=== PATIENT | female | born 2000 | race Caucasian/White ===

== ENCOUNTER 2020-03-30 08:42 | Outpatient (REF) | payer MEDICAID, SELFPAY | END 2020-03-30 08:43 | disposition home or self-care (01) | LOC: HO.LAB 08:42 | PROVIDERS: Visit Provider Internal Medicine | DX: Z20.822 Contact with and (suspected) exposure to COVID-19 (principal) | CPT/HCPCS: 36415; C9803; U0003; U0005 ==

== ENCOUNTER 2020-05-28 22:07 | Emergency (ER) | payer MEDICAID, SELFPAY ==
--- NOTE | ~2020-05-28 | US_ITS ---
EXAMINATION: US VENOUS WITH DOPPLER UPPER EXTREMITY, RIGHT CLINICAL INFORMATION: Right arm edema and swelling COMPARISON: None TECHNIQUE: Ultrasound of the upper extremity is performed using compression sonography and color and pulse Doppler flow with assessment of augmentation of flow. There is also imaging and Doppler assessment of the jugular and subclavian veins. Spectral analysis with color-flow imaging is performed. FINDINGS: Respiratory variation, normal compression, and augmented flow are noted throughout the upper extremity including the axillary, brachial, cubital, and radial and ulnar veins. There is normal flow in the internal jugular and subclavian veins. There is no visible deep or superficial thrombophlebitis. If the patient's symptoms progress, a followup ultrasound in 5 -7 days might be of value to exclude proximal propagation from a nonvisualized distal arm vein. US/US venous duplex UE RT IMPRESSION: No DVT demonstrated in the right upper extremity
[2020-05-28 22:21] VITALS: BP 116/74; PULSE 66; RESP 18; TEMP 36.9; O2SAT 98; BMI 28.8
--- NOTE | 2020-05-28 23:03 | ED_ITS ---
HPI - General Adult General Chief complaint: General Medical Stated complaint: Hand swelling Time Seen by Provider: 05/28/20 22:36 Source: patient and family (Mother) Mode of arrival: ambulatory Limitations: no limitations History of Present Illness HPI narrative: Right forearm swelling and pain around right wrist area. The symptoms started 2 days ago around the right wrist with swelling and pain with movement with no trauma, symptoms are progressively worsening now with the pain and swelling is going up to right arm, patient just came back from [facility] had plastic surgery done (bilateral breast augmentation, and liposuction) patient is wearing bilateral upper extremities compression socks. Related Data Allergies Allergy/AdvReac Type Severity Reaction Status Date / Time No Known Allergies Allergy Unverified 11/04/19 16:51 Review of Systems Review of Systems: All other systems are reviewed and are negative Constitutional: Reports as per HPI and Reports no additional constitutional complaints Eyes: Reports as per HPI and Reports no additional eye complaints Reports system reviewed and no additional complaints, except as documented Cardiovascular: Reports as per HPI and Reports no additional cardiovascular complaints Respiratory: Reports as per HPI and Reports no additional respiratory complaints Gastrointestinal: Reports as per HPI and Reports no additional gastrointestinal complaints Genitourinary: Reports no additional female genitourinary complaints Musculoskeletal: Reports no additional musculoskeletal complaints Skin/Breast: Reports system reviewed and no additional complaints, except as docu Psychiatric: Reports no additional psychiatric complaints Endocrine: Reports no additional endocrine complaints Hematologic/Lymphatic: Reports no additional hematologic/lymphatic complaints Allergic/Immunologic: Reports no additional allergic/immunologic complaints Reports system reviewed and no additional complaints, except as documented and Reports Abnormal speech present [facility] Past Medical History Surgical History Gastric bypass status for obesity H/O breast augmentation Social History Social History Advance Directives: No Advance Directives Information Provided: No Physical Exam Vital Signs: Vital Signs: Last Vital Signs Temp 98.4 F 05/28/20 22:21 Pulse 66 05/28/20 22:21 Resp 18 05/28/20 22:21 BP 116/74 05/28/20 22:21 Pulse Ox 98 05/28/20 22:21 Body Mass Index 28.8 Vital signs have been reviewed as appeared to be correct. Blood pressure normal. Heart rate normal. Respiration rate normal. Temperature normal. Oxygen saturation normal. Appearance: Alert. Oriented X3. No acute distress. Head: Normal external exam. Normocephalic. Atraumatic. No Camacho signs noted. No raccoon eyes noted Eyes: PERRLA. EOMI. Conjunctiva and sclera normal. Eyelids normal. ENT: TM's Normal. Pharynx normal. Uvula midline. Moist mucous membranes. No trismus noted. No drooling noted. No muffled voice noted. Neck: Normal inspection. Neck supple. FROM. No adenopathy. Thyroid Normal. No meningeal signs. No neck mass noted. CVS: Normal heart rate and rhythm. Heart sound normal. No murmurs noted. Pulses normal throughout. Respiratory: No respiratory distress. Painless inspiration. Breath sounds normal. No wheezes/rales/rhonchi noted. Chest nontender. No accessory muscle usage noted or decreased air movement noted. Abdomen: Soft and nontender. Bowel sounds normal in all 4 quadrants. No distention noted. No organomegaly noted. No visible injury noted. Back: No CVA tenderness. Full range of motion noted. Skin: Skin warm and dry. Normal skin color. Normal skin turgor. No rashes/lesions/lacerations noted. Extremities: Right upper extremities exam: Patent right radial artery pulsation, good cap refill less than 2 seconds in the right hand, pain with percussion over median nerve with hyperextending right wrist. Neuro: Oriented X 3. No motor deficit. No sensory deficit. Reflexes normal. Course Course Course Narrative: Assessment and plan. 19-year-old female came in with swelling and pain in the right wrist/arm physical exam is more consistent with carpal tunnel syndrome, however because the patient had a recent surgical procedure and recent travel patient had upper extremities ultrasound to rule out DVT. Medical Decision Making Imaging Data Right upper extremities ultrasound: Radiologist's impression: No DVT. Discharge Plan Discharge Clinical Impression: Acute carpal tunnel syndrome Patient Disposition: Home, Self-Care Instructions: Paresthesia (ED) Referrals: Everardo Balderas MD [Physician] - 2 days
== END 2020-05-29 01:01 | disposition home or self-care (01) ==
PROVIDERS: Emergency Provider Emergency Medicine
DX: G56.01 Carpal tunnel syndrome, right upper limb (principal); M25.531 Pain in right wrist; Z98.890 Other specified postprocedural states
CPT/HCPCS: 93971; 99283; 99284

== ENCOUNTER 2022-10-08 09:39 | Outpatient (REF) | payer OTHER, SELFPAY ==
[2022-10-08 14:28] LABS: Estimated Average Glucose 103 mg/dL; Hemoglobin A1c % 5.2 % (<6.0)
[2022-10-08 15:07] LABS: Blood Urea Nitrogen 8 mg/dL (9-16); Estimated Glomerular Filt Rate > 60; Potassium 4.2 mmol/L (3.3-5.1)
[2022-10-08 15:13] LABS: TSH reflex Free T4 1.56 uIU/mL (0.32-4.0)
[2022-10-08 16:43] LABS: CT PCR NOT DETECTED (Not Detect.); NG PCR NOT DETECTED (Not Detect.)
[2022-10-09 10:46] LABS: BV Int Neg Control Negative (Negative); BV Int Pos Control Positive (Positive)
[2022-10-12 12:28] LABS: Testosterone, Total 37 ng/dL (2-45)
== END 2022-10-08 09:40 | disposition home or self-care (01) ==
LOC: HO.CHCLDS 09:39
PROVIDERS: Visit Provider Advanced Practice Midwife
DX: N89.8 Other specified noninflammatory disorders of vagina (principal)
CPT/HCPCS: 0353U; 36415; 82565; 83036; 84132; 84403; 84443; 84520; 87480; 87510; 87660

== ENCOUNTER 2022-10-10 08:37 | Outpatient (REF) | payer OTHER, SELFPAY ==
[2022-10-10 15:36] LABS: Alanine Aminotransferase 24 U/L (0-31); Albumin Level 4.1 g/dL (3.5-5.0); Alkaline Phosphatase 85 U/L (39-117); Anion Gap 9 (12-20); Aspartate Amino Transferase 19 U/L (5-31); Bilirubin Total 0.7 mg/dL (0.0-1.0); Blood Urea Nitrogen 9 mg/dL (9-16); Calcium 9.3 mg/dL (8.4-10.2); Carbon Dioxide 24 mmol/L (22-29); Chloride 107 mmol/L (96-108); Estimated Glomerular Filt Rate > 60; Glucose Fasting 58 mg/dL (60-99); Potassium 4.2 mmol/L (3.3-5.1); Sodium 136 mmol/L (135-145); Total Protein 7.5 g/dL (6.5-8.0)
== END 2022-10-10 08:38 | disposition home or self-care (01) ==
LOC: CF 08:37
PROVIDERS: Visit Provider Internal Medicine
DX: R79.89 Other specified abnormal findings of blood chemistry (principal)
CPT/HCPCS: 36415; 80053

== ENCOUNTER 2023-05-22 10:49 | Emergency (ER) | payer OTHER, SELFPAY ==
[2023-05-22 10:51] VITALS: BP 117/70; PULSE 100; RESP 16; TEMP 36.4; O2SAT 100; BMI 33.5
--- NOTE | 2023-05-22 11:35 | ED.SKABFB ---
HPI - Skin/Abscess/Foreign Bdy General Chief complaint: Skin/Abscess/Foreign Body Stated complaint: cyst on back Time Seen by Provider: 05/22/23 10:55 Source: patient Mode of arrival: ambulatory Limitations: no limitations History of Present Illness HPI narrative: Nydia is a 22 year old female presenting today for evaluation of a mass on her back for a 1 month that has been growing acutely the past week. Reports that her noticed a small bump 1cm in her middle back, between clavicles about a month ago. Nonpainful at this time. This Friday, she noticed that the mass was painful with upper extremity movement. Mass has grown to 6cm. Reports very painful and tender to touch. Denies cold symptoms, reports one isolated fever a few days ago/ MD complaint: other (cyst) Onset (ago): month(s) (first noticed 1 month ago with acute growing since Friday) Location: back Severity: severe Severity scale (1-10): 9 Quality: sharp Pain Consistency: constant Relieving factors: none Exacerbating factors: movement Context: none Associated symptoms: denies other symptoms Treatments prior to arrival: none Related Data Allergies Allergy/AdvReac Type Severity Reaction Status Date / Time No Known Allergies Allergy Verified 05/22/23 10:52 Review of Systems Review of Systems: Yes all other systems are reviewed and are negative PMFSH Past Medical History Surgical History Gastric bypass status for obesity H/O breast augmentation Social History Social History Advance Directives: No Advance Directives Information Provided: No Physical Exam Vital Signs: Vital Signs: Last Vital Signs Temp 98.0 F 05/22/23 12:42 Pulse 79 05/22/23 12:42 Resp 18 05/22/23 12:42 BP 106/72 05/22/23 12:42 Pulse Ox 99 05/22/23 12:42 O2 Del Method Room Air 05/22/23 12:42 BMI result Body Mass Index 33.5 Appearance: Alert. Oriented X3. No acute distress. Head: normocephalic, atraumatic. ENT: Pharynx normal. No tonsillar swelling or exudate. Neck: Normal inspection. Neck supple. CVS: Normal heart rate and rhythm. Pulses normal. Respiratory: No respiratory distress. Breath sounds normal. Abdomen: Soft and nontender. Skin: Skin warm and dry. Normal skin color. Normal skin turgor. No rashes. 6cm mild deep mass, located midback between L&R scapula. Mild erythema, mild fluctance. Tender to palpation Extremities: No lower extremity edema. No joint swelling. Neuro/psych: Oriented X 3. Medical Decision Making Medical Decision Making MDM Narrative: Nydia is a 22 year old female who presents today for evaluation of a cyst on her upper middle back for 1 month which has been acutely growing since Friday. Initial started as 1cm and nonpainful and has grown to 6cm and tender to touch since Friday. Mass is deep and has overlying erythema and mildly fluctuating. Exam is otherwise unremarkable. Patient asked for I&D as it is painful. Performed I&D and expelled cellular debris and blood. No purulence note and low clinical suspicion for infection at this time. Will hold off on antibiotics. Dressed with absorbent pad and stable for discharge home. Referred to Dermatology for follow up with strict return to ER precautions. Differential Diagnosis Differential Diagnoses: The differential diagnosis associated with the presentation includes abscess, cyst, lipoma, tumor, ingrown hair, pimple Tests considered The following testing was considered but not selected: considered culture of fluid, does not appear infected Prescription Management I considered prescription management with: Pain Medication and Antibiotic Procedures Abscess I/D Site: back Local Anesthetic: lidocaine 1% Amount of anesthesia used (mL): 1 Technique: incised with blade (11 blade) Sent for culture/gram staining?: No Irrigation: Yes Packing used?: none Complications: other Critical Care Time Critical Care Time Critical Care Time: No Discharge Plan Discharge Clinical Impression: Epidermoid cyst of skin of back Patient Disposition: Home, Self-Care Instructions: Cyst (ED) Additional Instructions: Your cyst was drained in the ER today No signs of infection so no need for antibiotics Recommend following up with Dermatology for further evaluation and treatment [facility] in [address] [phone] If you develop new or worsening symptoms call 911 or come back to the ER for further evaluation. Referrals: Rory Gregorio MD [Primary Care Provider] - Stand Alone Forms: Work/School Release Interventions: ED Discharge Assessment Last Done: 05/22/23 12:42 Discharge Date/Time: 05/22/23 12:43 Print Language: Filipino
[2023-05-22 12:42] VITALS: BP 106/72; PULSE 79; RESP 18; TEMP 36.7; O2SAT 99
== END 2023-05-22 12:43 | disposition home or self-care (01) ==
PROVIDERS: Emergency Provider Emergency Medicine; PCP Internal Medicine
DX: L02.212 Cutaneous abscess of back [any part, except buttock and flank] (principal)
CPT/HCPCS: 10060; 99282; 99284

== ENCOUNTER 2023-06-26 14:56 | Outpatient (REF) | payer OTHER, SELFPAY ==
[2023-06-26 16:48] LABS: HCG Quantitative 9215 mIU/mL
== END 2023-06-26 14:57 | disposition home or self-care (01) ==
LOC: HO.HHCL 14:56
PROVIDERS: Visit Provider Internal Medicine
DX: Z31.9 Encounter for procreative management, unspecified (principal)
CPT/HCPCS: 36415; 84702

== ENCOUNTER 2024-06-01 11:46 | Outpatient (REF) | payer MEDICAID, SELFPAY ==
--- OUTSIDE RECORDS SUMMARY | 2024-06-01 14:35 | XMS_ITS | Encounter Summary ---
Author Organization [employer] Address [address] [facility] 7 [place] [address] Care Team Providers Care Bessemer Converter Blower Name Role Phone Rory Gregorio MD Primary Care Prov ider Encounter Details Date Type Department Care Team (Late st Contact Info) Description 10/10/2022 Telephone [facility] [address] [place] [address] Rory Gregorio MD [address] [place], [place] [phone] Social History Tobacco Use Types Packs/Day Years Used Date Smoking Tobacco: Never Smokeless Tobacco: Never Alcohol Use Standard Drinks/Week Comments Never 0 (1 standard drink = 0.6 oz pur e alcohol) Comments No Sex and Gender Information Value Date Recorded Sex Assigned at Female 12/17/2021 10:35 AM EDT Legal Sex Female 10:35 AM EDT Gender Identity Female 12/17/2021 10:35 AM EDT Sexual Orientation Straight 12/17/2021 10 :35 AM EDT documented as of this encounter Miscellaneous Notes * Telephone Encounter - Isabelle Treadwell RN - 10/10/2022 4:02 PM EDT Please see message below. Message also sent to PCP via secure chat. * Telephone Encounter - Violet Morrison LPN - 10/10/2022 3:44 PM EDT Critical Line call received at this time. Noel with [facility] chem lab reports patient BS 58 this morning at 839am. Team Nurses updated with result. Triage Nurse did wellness check with patient and patient without concerns. Was fasting overnight and has had breakfast and lunch and feels well. Please update PCP as needed. documented in this encounter Plan of Treatment Not on file documented as of this encounter Visit Diagnoses Not on filedocumented in this encounter Care Teams Bessemer Converter Blower Relationship Specialty Start Date End Date Rory Gregorio MD [address] [place] [id number] PCP - General Internal Medicine 07/13/19 Rayna Mauro Regional Education Coordinator 04/09/24 documented as of this encounter
--- OUTSIDE RECORDS SUMMARY | 2024-06-01 14:35 | XMS_ITS | Encounter Summary ---
Author Organization [employer] Address [address] [place] [address] Care Team Providers Care Automatic Outsole Cutter Name Role Phone Rory Gregorio MD Primary Care Prov ider Encounter Details Date Type Department Care Team (Latest Contact Info) Description 05/31/2024 Travel Social History Tobacco Use Types Packs/Day Years Used Date Smoking Tobacco: Never Smokeless Tobacco: Never Alcohol Use Standard Drinks/Week Comments Never 0 (1 standard drink = 0.6 oz pur e alcohol) Housing Stability Answer Date Recorded What is your housing situation today? I have ayanna faheem 02/27/[address] you li ve. Do you have problems with any of the following? None of the above 02/27/2024 Food Insecurity Answer Date Recorded Within the past 12 months, y ou worried that your food would run out before you got money to buy more: Never True 02/27/2024 Within the past 12 months,th e food you bought just didn't last and you didn't have enough money to get more: Never True 11/2024 Transportation Answer Date Recorded In the past 12 months, has l ack of transportation kept you from medical appts, meetings, work or from getting things needed for daily living? No 02/27/2024 Utilities Answer Date Recorded In the past 12 months, has t he electric, gas, oil or water company threatened to shut off services in your home? No 02/27/2024 Internet Access Answer Date Recorded Internet Access Q1 Yes 02/27/2024 Internet Access Q2 Not on file 02/27/2024 Comments No Sex and Gender Information Value Date Recorded Sex Assigned at Female 12/17/2021 10:35 AM EDT Legal Sex Female 10:35 AM EDT Gender Identity Female 12/17/2021 10:35 AM EDT Sexual Orientation Straight 12/17/2021 10 :35 AM EDT documented as of this encounter Plan of Treatment Not on file documented as of this encounter Visit Diagnoses Not on filedocumented in this encounter Care Teams Automatic Outsole Cutter Relationship Specialty Start Date End Date Rory Gregorio MD [address] [place] [phone] PCP - General Internal Medicine 07/13/19 Rayna Mauro Dress Marker 04/09/24 documented as of this encounter
--- OUTSIDE RECORDS SUMMARY | 2024-06-01 14:35 | XMS_ITS | Clinical Summary ---
Author Organization [employer] Address [address] [place] [address] Care Team Providers Care Apparatus Lineman Name Role Phone Rory Gregorio MD Primary Care Prov ider Allergies No known active allergies Medications Vit-Fe Fumarate-FA ( Plus) 27-1 MG tablet One tablet by mouth daily 30 tablet 11 01/30/2023 Active Encounters Date Type Department Care Team Description 05/31/2024 2:20 PM EDT Office Visit [facility] [address] [place] [address] Portillo Reardon MD Rectal bleed (Primary Dx) 05/31/2024 Travel 05/31/2024 Telephone [facility] [address] [place] [phone] Rory Gregorio MD Nurse Triage 05/24/[address] [phone] Rory Gregorio MD Care Management (C3 follow up call) 05/20/2024 Patient Outreach [facility] [address] [place] [phone] Rory Gregorio MD Care Coordination (C3/JENA Guerrero- Follow up call) 05/07/2024 Patient Outreach [facility] [address] [place] [phone] Rory Gregorio MD Care Coordination (C3/ JENA Guerrero-Follow up call) 04/30/2024 Population Health Risk [facility] ([facility] Department [address] [place] [phone] Provider, Population Health Generic 04/23/2024 Patient Outreach [facility] [address] [place] [address] Rory Gregorio MD Care Coordination ([facility]/JENA Guerrero- Follow up) 04/23/2024 Telephone [facility] [address] [place] [phone] Rory Gregorio MD Care Management (C3 follow up call) 04/09/2024 Telephone [facility] [address] [place] [phone] Rory Gregorio MD Care Management (C3 initial assessment/enrollme nt) 04/08/2024 Patient Outreach [facility] [address] [place], [place] [phone] Rory Gregorio MD Care Coordination ([facility]/JENA Guerrero- LVM-Appt Reminder for CM Initial Assessment) 03/22/2024 Patient Outreach [facility] [address] [place] [address] Rory Gregorio MD Care Coordination ([facility]/JENA Guerrero- Rescheduled missed initial assessment ) 03/11/2024 Patient Outreach [facility] [address] [place] [address] Rory Gregorio MD Care Coordination ([facility]/JENA Guerrero-Reschedule CM Program/ HR Maternity IA) 03/10/2024 Patient Outreach [facility] [address] [place] [address] Rory Gregorio MD Care Coordination ([facility]/JENA Guerrero- [place] Appt Reminder) from Last 3 Months Social History Tobacco Use Types Packs/Day Years Used Date Smoking Tobacco: Never Smokeless Tobacco: Never Tobacco Cessation:Counseling Given: Not Answered Alcohol Use Standard Drinks/Week Comments Never 0 (1 standard drink = 0.6 oz pur e alcohol) Housing Stability Answer Date Recorded What is your housing situation today? I have ayanna mayen 02/27/[address] you li [...] Orientation Straight 12/17/2021 10 :35 AM EDT Last Filed Vital Signs Vital Sign Reading Time Taken Comments Blood Pressure 102/65 05/31/2024 2:22 PM EDT Pulse 97 05/31/2024 2:22 PM EDT Temperature 36.6 ??C (97.9 ??F) 05/31/2024 2:22 PM ED T Respiratory Rate 20 05/31/2024 2:22 PM EDT Oxygen Saturation 97% 05/31/2024 2:22 PM EDT Inhaled Oxygen Concentration - - Weight 108 kg (237 lb) 05/31/2024 2:22 PM EDT Height 176.5 cm (5' 9.5 ) 05/31/2024 2:22 PM EDT Body Mass Index 34.5 05/31/2024 2:22 PM EDT Plan of Treatment Health Maintenance Due Date Last Done Comments Depression Screening 1999 Alcohol/Substance Use Screening 2011 Family Planning (PISQ) 11/21/2014 HPV Vaccines (2 - 3-dose series) 03/09/2015 02/09/2015, 02/09/2015 COVID-19 Vaccine (3 - season) 2023 11/16/2020, 10/26/2020 Pap Smear 10/09/2024 10/09/2021, 10/09/2021 SDOH Screening 02/26/2025 02/27/2024 Tobacco Screening 03/01/2025 03/01/2024 DTaP/Tdap/Td Vaccines (8 - Td or Tdap) 12/14/2033 12/15/2023, 02/09/2015, 03/14/2006, Additional history exists Zoster Vaccines (1 of 2) 11/21/2049 RSV Patients and Patients Aged 60 years or older (1 - 1-dose 75+ series) 11/21/2074 Hepatitis B Vaccines Completed 05/22/2000, 05/22/2000, 01/08/2000, Additional history exists HIB Vaccines Completed 01/22/2001, 06/2000, 03/24/2000, Additional history exists Pneumococcal Vaccine: Pediatrics (0 to 5 Years) and At-Risk Patients (6 to 49) Years) Aged Out 01/22/2001, 05/22/2000, 03/24/2000, Additional history exists No longer eligible based on patient's age to complete this topic IPV Vaccines Completed 03/14/2006, 05/18, 03/24/2000, Additional history exists Meningococcal Vaccine Aged Out 02/09/2015, 015 No longer eligible based on patient's age to complete this topic HIV Screening Completed 03/20/2020 Hepatitis C Screening Completed 03/20/2020 Influenza Vaccine Completed 12/15/2023, , 02/09/2015 Hepatitis A Vaccines Aged Out No long er eligible based on patient's age to complete this topic RSV under 20 months Aged Out No longe r eligible based on patient's age to complete this topic Rotavirus Vaccines Aged Out No longer eligible based on patient's age to complete this topic Procedures Procedure Name Priority Date/Time Associated Diagnosis Comments [facility] PAP Routine 10/09/2021 1:19 PM EDT ZZZ HISTORICAL HEPATITIS C AB W/REFL TO HCV RNA, QN, PCR Routine 03/20/2020 8:19 AM EST HIV 1/2 ANTIGEN/ANTIBODY, FOURTH GENERATION W/RFL Routine 03/20/2020 8:19 AM EST from Last 3 Months or Most Recently Relevant to Health Maintenance Results * THINPREP TIS PAP (10/09/2021 1:19 PM EDT) Clinical Information: None given [facility] COMMENT SEE COMMENT [facility] Comment: EXPLANATORY NOTE: ? The Pap is a screening test for cervical cancer. It is ?? not a diagnostic test and is subject to false negative ?? and false positive results. It is most reliable when a ?? satisfactory sample, regularly obtained, is submitted ?? with relevant clinical findings and history, and when ?? the Pap result is evaluated along with historic and ?? current clinical information. ?? COMMENT: This Pap test has been evaluated with computer assisted technology. [facility] Hack Saw Operator : SEE COMMENT [facility] Comment: YP, CT(ASCP) CT screening location: [address] ??[id number] Interpretation/R esult: Negative for intraepithelial lesion or malignancy. [facility] LMP: 09/25/21 [facility] Prev. BX: NONE GIVEN [facility] Prev. PAP: NONE GIVEN [facility] SOURCE: None given [facility] Statement Of Adequacy: SEE COMMENT [facility] Comment: Satisfactory for evaluation. Endocervical/transformation zone component absent. 10/09/2021 1:19 PM EDT us Danette Donahue CNM LAB PATHOLOGY ORDERABLES Final Result [facility] [address] * HEPATITIS C AB W/REFL TO HCV RNA, QN, PCR (03/20/2020 8:19 AM EST) HEPATITIS C ANTIBODY NON-REACT [place] NON-REACT [place] [facility] INDEX 0.01 <1.00 [facility] Comment: ?? HCV antibody was non-reactive. There is no laboratory ?? evidence of HCV infection. ?? In most cases, no further action is required. However, if recent HCV exposure is suspected, a test for HCV RNA (test code 75789) is suggested. ?? For additional information please refer to http://[employer]/faq/FEP00e6 (This link is being provided for informational/ educational purposes only.) ?? 03/20/2020 8:19 AM EST us Rory Pierce MD HISTORICAL/NON ORD ERABLE LABS Final Result [facility] [address] [place] [address], * HIV 1/2 ANTIGEN/ANTIBODY,FOURTH GENERATION W/RFL (03/20/2020 8:19 AM EST) HIV-1/2 ANTIGEN AND ANTIBODIES, 4TH GENERATION W/ REFLEX NON-REACT [place]IGHT[place] NON-REACT LE[place]ON [facility] Comment: HIV-1 antigen and HIV-1/HIV-2 antibodies were not detected. There is no laboratory evidence of HIV infection. ?? PLEASE NOTE: This information has been disclosed to you from records whose confidentiality may be protected by state law. ??If your state requires such protection, then the state law prohibits you from making any further disclosure of the information without the specific written consent of the person to whom it pertains, or as otherwise permitted by law. A general authorization for the release of medical or other information is NOT sufficient for this purpose. ? For additional information please refer to http://[email or web address]/faq/OIW119 (This link is being provided for informational/ educational purposes only.) ? The performance of this assay has not been clinically validated in patients less than 2 years old. ?? 03/20/2020 8:19 AM EST us Rory Pierce MD LAB BLOOD ORDERABL ES Final Result [facility] [address] from Last 3 Months or Most Recently Relevant to Health Maintenance Insurance [facility] C3 Care Teams Apparatus Lineman Relationship Specialty Start Date End Date Rory Gregorio MD [address] [place] [id number] PCP - General Internal Medicine 07/13/19 Rayna Mauro Digital X Ray Service Engineer 04/09/24
--- OUTSIDE RECORDS SUMMARY | 2024-06-01 14:35 | XMS_ITS | Encounter Summary ---
Author Organization [employer] Address [address] [place] [id number] Care Team Providers Care Conduit Cleaner Name Role Phone Rory Gregorio MD Primary Care Prov ider Reason for Referral * Consultation (Routine) - Pending Review Specialty Diagnoses / Procedures Referred By Ricci atkins Referred To Contact Gastroenterology Diagnoses Rectal bleed Portillo Reardon MD [address] [place] [address] Phone: tel: fax: Referral ID Status Reason Start Date Expiration Date Visits Requested Visits Authorized [id number] Pending Review Specialty Services Required 05/31/2024 05/31/2025 1 1 Reason for Visit * Reason Comments Rectal Bleeding Encounter Details Date Type Department Care Team ([facility] Contact Info) Description 05/31/2024 2:20 PM EDT Office Visit [facility] MED & PEDS [address] [place] [address] Portillo Reardon MD [address] [place] [address] Rectal bleed (Primary Dx) Social History Tobacco Use Types Packs/Day Years [...] AM EDT documented as of this encounter Last Filed Vital Signs Vital Sign Reading [...] Mass Index 34.5 05/31/2024 2:22 PM EDT documented in this encounter Progress Notes * Portillo Reardon MD - 05/31/2024 2:20 PM EDT Subjective Patient ID: Nydia Merida is a 23 y.o. female who presents for Rectal Bleeding. Rectal Bleeding This is a new problem. The current episode started in the past 7 days. The problem occurs daily. The problem has been unchanged. Pertinent negatives include no abdominal pain, anorexia, arthralgias, change in bowel habit, chest pain, chills, congestion, coughing, diaphoresis, fatigue, fever, headaches, joint swelling, myalgias, nausea, neck pain, numbness, rash, sore throat, swollen glands, urinary symptoms, vertigo, visual change, vomiting or weakness. Note from triage reviewed: pt states having 3 episodes a few days ago of blood in stool. pt states small streaks in her stool and on the paper after wiping. pt denies previous history, a lot of blood in stool, red water, history of hemorrhoids,constipation, diarrhea, abdominal or rectal pain, or other associated symptoms. First episode of rectal bleed in the last 3 days. Has blood both in the bowl and when wipes herself. History of delivery 3 months ago. No history of hemorrhoids. Review of Systems Constitutional: Negative for chills, diaphoresis, fatigue and fever. HENT: Negative for congestion and sore throat. Respiratory: Negative for cough. Cardiovascular: Negative for chest pain. Gastrointestinal: Positive for hematochezia. Negative for abdominal pain, anorexia, change in bowelhabit, nausea and vomiting. Musculoskeletal: Negative for arthralgias, joint swelling, myalgias and neck pain. Skin: Negative for rash. Neurological: Negative for vertigo, weakness, numbness and headaches. Objective BP 102/65 (BP Location: Left arm, Patient Position: Sitting, BP Cuff Size: Adult long) Pulse 97 Temp 97.9 ??F (36.6 ??C) (Oral) Resp 20 Ht 5' 9.5 (1.765 m) Wt 237 lb (108 kg) SpO2 97% BMI 34.50 kg/m?? Physical Exam Constitutional: General: She is not in acute distress. Appearance: Normal appearance. She is not ill-appearing, toxic-appearing or diaphoretic. Cardiovascular: Rate and Rhythm: Normal rate and regular rhythm. Heart sounds: No murmur heard. No friction rub. Genitourinary: Comments: No redness or swelling of the perianal area No external hemorrhoids Skin: General: Skin is warm. Neurological: General: No focal deficit present. Mental Status: She is alert. Assessment/Plan Diagnoses and all orders for this visit: Rectal bleed - Referral to Gastroenterology; Future - CBC auto differential; Future High-fiber diet, appropriate hydration recommended GI evaluation to assess if patient is a candidate for a colonoscopy documented in this encounter Plan of Treatment Scheduled Orders Name Type Priority Associated Diagnoses Orde r Schedule CBC auto differential Lab Routine Rectal bleed Expected: 05/31/2024 (Approximate), Expires: 05/31/2025 Scheduled Referrals Name Type Priority Associated Diagnoses Order Schedule Referral to Gastroenterology Outpatient Referral Routine Rectal bleed Expected: 05/31/2024 (Approximate), Expires: 05/31/2025 documented as of this encounter Visit Diagnoses Diagnosis Rectal bleed- Primary Hemorrhage of rectum and anus documented in this encounter Care Teams Conduit Cleaner Relationship Specialty Start Date End Date Rory Gregorio MD [address] [place] [id number] PCP - General Internal Medicine 07/13/19 Rayna Mauro It Admin 04/09/24 documented as of this encounter
--- OUTSIDE RECORDS SUMMARY | 2024-06-01 14:35 | XMS_ITS | Encounter Summary ---
Author Organization [employer] Address [address] [place] [address] [place] [address] Care Team Providers Care Human Services Program Specialist Name Role Phone Rory Gregorio MD Primary Care Prov ider Reason for Visit * Reason Onset Date Comments Referral 07/09/2023 Encounter Details Date Type Department Care Team ([facility] st Contact Info) Description 07/09/2023 Telephone [facility] CH[facility] MED & PEDS [address] [place], [place] [phone] Rory Gregorio MD [address] [place] [address] Referral Social History Tobacco Use Types Packs/Day Years [...] encounter Miscellaneous Notes * Telephone Encounter - Shreya Gomez - 07/11/2023 11:56 AM EDT Referral re-faxed to office. * Telephone Encounter - Rocio Treadwell - 07/09/2023 10:20 AM EDT Tc from pt requesting Ob/Gy referral to be re faxed to [phone]. States office did no receive referral. documented in this encounter Plan of Treatment Not on file documented as of this encounter Visit Diagnoses Not on filedocumented in this encounter Care Teams Human Services Program Specialist Relationship Specialty Start Date End Date Rory Gregorio MD [address] [place] [id number] PCP - General Internal Medicine 07/13/19 Rayna Mauro Biostatistics Teacher 04/09/24 documented as of this encounter
--- OUTSIDE RECORDS SUMMARY | 2024-06-01 14:35 | XMS_ITS | Encounter Summary ---
Author Organization [employer] Address [address] [place] [address] 7 [place] [address] Care Team Providers Care Actuarial Science Teacher Name Role Phone Rory Gregorio MD Primary Care Prov ider Encounter Details Date Type Department Care Team ([facility] st Contact Info) Description 10/09/2022 Orders Only [facility] CH[facility] MED & PEDS [address] [place], [place] [phone] Rory Gregorio MD [address] [place] [address] Low BUN (Primary Dx) Social History Tobacco Use Types [...] as of this encounter Plan of Treatment Scheduled Orders Name Type Priority Associated Diagnoses Orde r Schedule Comprehensive Metabolic Panel Lab Routine Low BUN Expected: 10/09/2022 (Approximate), Expires: 10/10/2023 documented as of this encounter Visit Diagnoses Diagnosis Low BUN- Primary documented in this encounter Care Teams Actuarial Science Teacher Relationship Specialty Start Date End Date Rory Gregorio MD [address] [place], [place] [phone] PCP - General Internal Medicine 07/13/19 Rayna Mauro Solar Designer 04/09/24 documented as of this encounter
--- OUTSIDE RECORDS SUMMARY | 2024-06-01 14:35 | XMS_ITS | Encounter Summary ---
Author Organization [employer] Address [address] [facility] [address] [place] [address] Care Team Providers Care Bowling Alley Mechanic Name Role Phone Rory Gregorio MD Primary Care Prov ider Reason for Visit * Reason Onset Date Comments Nurse Triage 05/31/2024 Encounter Details Date Type Department Care Team ([facility] st Contact Info) Description 05/31/2024 Telephone [facility] MEDICINE [address] [place] [address] Rory Gregorio MD [address] [place], [place] [phone] Nurse Triage Social History Tobacco Use Types Packs/Day Years [...] t he electric, gas, oil or water [employer] threatened to shut off services in your [...] encounter Miscellaneous Notes * Telephone Encounter - Jamila Roger RN - 05/31/2024 9:43 AM EDT called pt to triage, spoke to pt. pt states having 3 episodes a few days ago of blood in stool. pt states small streaks in her stool and on the paper after wiping. pt denies previous history, a lot of blood in stool, red water, history of hemorrhoids,constipation, diarrhea, abdominal or rectal pain, or other associated symptoms. given appt today with [facility] at 2:20 for exam. advised home care: rest, fluids, bland diet for now, monitor for fevers, and call back if worsening or new concerns. pt understands and agrees with plan. previous health plan no longer active, pt states now has MH. checked the MH and is currently active. Protocol Used: Rectal Bleeding (Adult) Protocol-Based Disposition: See in Office or Video Visit within 3 Days Video visit offer not recorded Positive Triage Question: * Mild rectal bleeding (more than just a few drops or streaks) * All higher-acuity triage questions were negative Care Advice Discussed: * Reassurance and Education - Mild Rectal Bleeding * Warm Saline Sitz Baths - For Rectal Symptoms * Warm Saline Sitz Baths - How to Make a Sitz Bath * To Soften Stools and Treat Constipation * High Fiber Diet * Hydrocortisone Ointment for Rectal Itching * Reasons To Call Back - Bleeding increases in amount - Bleeding occurs 3 or more times after using Care Advice - You become worse * Telephone Encounter - Latonia Aldana - 05/31/2024 8:24 AM EDT Symptom: Stools - Blood Mixed In Outcome: Schedule an urgent appointment (within 4 hours) or talk to a nurse or provider soon Reason: Caller denied all higher acuity questions The caller accepted this outcome. [phone] documented in this encounter Plan of Treatment Not on file documented as of this encounter Visit Diagnoses Not on filedocumented in this encounter Care Teams Bowling Alley Mechanic Relationship Specialty Start Date End Date HustonRory Torres MD [address] [place] [id number] PCP - General Internal Medicine 07/13/19 Rayna Mauro Surgery Aide 04/09/24 documented as of this encounter
[2024-06-01 14:44] LABS: MANUAL DIFF FLAG NO
[2024-06-01 14:50] LABS: Basophils Percent Auto 0.6 % (0-2); Eosinophils Absolute Auto 0.2 X10*3/uL (0.0-0.4); Eosinophils Percent Auto 2.9 % (0-4); Hematocrit 37.8 % (37.0-47.0); Hemoglobin 12.3 g/dl (12.0-16.0); Imm Gran Abs Auto 0.01 X10*3/uL (0.00-0.03); Imm Gran Pct Auto 0.1 % (0.0-0.4); Lymphocytes Absolute Auto 2.6 X10*3/uL (1.2-4.9); Lymphocytes Percent Auto 36.4 % (20-40); Mean Corpuscular HGB Conc 32.5 g/dl (31.0-35.0); Mean Corpuscular Hemoglobin 28.7 pg (27.0-33.0); Mean Corpuscular Volume 88.1 fL (80.0-98.0); Mean Platelet Volume 12.3 fL (9.4-12.3); Monocytes Absolute Auto 0.5 X10*3/uL (0.1-1.2); Monocytes Percent Auto 7.4 % (2-11); Neutrophils Absolute Auto 3.8 x10*3/uL (2.0-8.3); Neutrophils Percent Auto 52.6 % (45-73); Platelet Count 110 X10*3/uL (160-400); Red Blood Count 4.29 X10*6/uL (4.20-5.50); Red Cell Distribution Width 14.5 % (11.0-16.0); White Blood Count 7.2 X10*3/uL (4.8-10.8)
== END 2024-06-01 11:47 | disposition home or self-care (01) ==
LOC: HO.CHCLDS 11:46
PROVIDERS: Visit Provider Internal Medicine
DX: K62.5 Hemorrhage of anus and rectum (principal)
CPT/HCPCS: 36415; 85025

== ENCOUNTER 2024-07-17 14:13 | Outpatient (REF) | payer MEDICAID, SELFPAY | END 2024-07-17 14:14 | disposition home or self-care (01) | LOC: HO.LNP 14:13 | PROVIDERS: Visit Provider Family Medicine | DX: A60.1 Herpesviral infection of perianal skin and rectum (principal) | CPT/HCPCS: 87255 ==

== ENCOUNTER 2024-09-29 10:59 | Outpatient (AMB) | payer MEDICAID, SELFPAY ==
--- NOTE | 2024-09-29 11:11 | A.OFFVIS_ITS ---
Vital Signs 09/29/24 11:15 Height 5 ft 9.5 in Weight 235 lb 14.314 oz BMI 34.3 BP 103/55 L Blood Pressure Location Lt brachial Position Sitting Pulse 88 Intake Visit Reasons: Rectal bleeding Intake Note: Nydia presents in the office as a new patient for rectal bleeding. CC: She states that she is no longer having the rectal bleeding. She states that it was for 4-5 days and it went away on its own. Campaign Fundraiser Required: No Allergies No Known Allergies Allergy (Verified 09/29/24 11:16) HPI Comments Details: 23 y.o F with PMH of who is here for rectal bleeding that has since resolved. Pt reports had a 4 day episode in May 2024 of seeing streaks of fresh BRB on TP after wiping. During that time she was constipated and was straining. No rectal pressure or pain at that time or at present. No abd pain. Pt is post , baby born 02/2025. No anal trauma, or intercourse. [facility] Surgical History H/O breast augmentation Gastric bypass status for obesity Review of Systems Const All systems reviewed & are unremarkable except as noted in HPI and below Physical Exam Exam Exam: No apparent distress Nonicteric Abdomen soft, nondistended rectal: (Zohra bueno present as digital imager) no external hemorrhoids, anal tag, small internal hemorrhoids, no blood on gloved finger Alert and oriented x3, normal gait Vital Signs: Last Vital Signs Pulse 88 09/29/24 11:15 BP 103/55 L 09/29/24 11:15 BMI result Body Mass Index 34.3 Assessment & Plan Assessment & Plan (1) Bright red rectal bleeding: Code(s): K62.5 - Hemorrhage of anus and rectum Category: Medical Plan Self-limiting rectal bleeding a few months ago. This occurred in the context of constipation and straining. Likely had hemorrhoidal bleeding. No red flags at present to warrant urgent endoscopic evaluation. Patient advised to avoid straining and constipation. Take adequate hydration, and fiber supplementation. Can take MiraLax as needed for constipation. Encouraged to call back the office if this recurs. Medications: New psyllium seed (sugar) (Metamucil (sugar) oral powder) 1 tsp PO DAILY 1,254 grams 0RF Coding Level of Care Code New Pt Level 3 (06621) Diagnoses Bright red rectal bleeding K62.5
[2024-09-29 11:15] VITALS: BP 103/55; PULSE 88; BMI 34.3
--- OUTSIDE RECORDS SUMMARY | 2024-09-29 11:55 | XMS_ITS | Encounter Summary ---
Author Organization [employer] Address [address] [place] [address] [address] [place] [address] Care Team Providers Care Speech And Hearing Director Name Role Phone Rory Gregorio MD Primary Care Prov ider Reason for Visit * Reason Onset Date Comments Referral 07/09/2023 Encounter Details Date Type Department Care Team ([facility] Contact Info) Description 07/09/2023 Telephone [facility] CHC MED & PEDS [address] [place], [place] [phone] Rory Gregorio MD [address] [place] [address] Referral Social History Tobacco Use Types Packs/Day [...] Ob/Gy referral to be re faxed to [phone]. States office did no receive referral. documented in this encounter Plan of Treatment Upcoming Encounters Date Type Department Care Team (Late st Contact Info) Description 10/07/2024 1:15 PM EDT Procedure Visit [facility] MEDICINE [address] [place], [place] [phone] Danette Donahue CNM [address] [place], [place] [phone] documented as of this encounter Visit Diagnoses Not on filedocumented in this encounter Care Teams Speech And Hearing Director Relationship Specialty Start Date End Date Rory Gregorio MD [address] [place] [phone] PCP - General Internal Medicine 07/13/19 Rayna Mauro Fax Machine Operator 04/09/24 documented as of this encounter
== END 2024-09-29 13:45 | disposition home or self-care (01) ==
LOC: HO.HGI 10:59
PROVIDERS: PCP Internal Medicine; Visit Provider Internal Medicine
DX: K62.5 Hemorrhage of anus and rectum (principal)
CPT/HCPCS: 99203

== ENCOUNTER → 2024-09-29 10:59 | Outpatient (BNVA) | payer MEDICAID, SELFPAY | PROVIDERS: PCP Internal Medicine; Visit Provider Internal Medicine | DX: K62.5 Hemorrhage of anus and rectum (principal) | CPT/HCPCS: 99202 ==

== ENCOUNTER 2024-10-07 19:02 | Outpatient (REF) | payer MEDICAID, SELFPAY ==
[2024-10-11 19:58] LABS: C. trachomatis RNA TMA NOT DETECTED (NOT DETECTED); N. gonorrhoeae RNA TMA NOT DETECTED (NOT DETECTED); Trichomonas (NAAT) NOT DETECTED (NOT DETECTED)
== END 2024-10-07 19:03 | disposition home or self-care (01) ==
LOC: HO.HHCLNP 19:02
PROVIDERS: Visit Provider Advanced Practice Midwife
DX: Z12.4 Encounter for screening for malignant neoplasm of cervix (principal); Z11.3 Encounter for screening for infections with a predominantly sexual mode of transmission
CPT/HCPCS: 87491; 87591; 87661; 88175